=== PATIENT | female | born 1970 ===

== ENCOUNTER 2017-01-03 12:30 | Emergency (ER) | payer SELFPAY ==
[~2017-01-03] VITALS: Ht 165.1 cm; Wt 115.0 kg
[2017-01-03 12:32] VITALS: Ht 165.1 cm; Wt 115.0 kg
[2017-01-03] MEDS ORDERED: NAPROXEN 500 MG TAB PO STA (13:29)
--- NOTE | 2017-01-03 14:20 | RADRPT ---
PROCEDURE: Ultrasound of the left lower extremity venous system. CLINICAL INDICATION: Left leg pain and swelling, deep venous thrombosis TECHNIQUE: Soni scale with and without compression, color doppler, spectral doppler of the venous system of the left lower extremity was performed. Venous augmentation maneuvers were utilized. COMPARISON: No prior studies are available for comparison. FINDINGS: Common femoral vein: Patent. Femoral vein: Patent. Popliteal vein: Patent. Calf veins: Patent. No soft tissue abnormalities are identified. IMPRESSION: No evidence of a deep vein thrombosis within the left lower extremity. RPTAT: AADD .Max Velarde MD, MD Date Time Electronically viewed and signed by .Max Velarde MD, on 01/03/2017 14:20 .B/
--- NOTE | 2017-01-03 14:40 | RADRPT ---
PROCEDURE: CR Left Knee CLINICAL INDICATION: Pain TECHNIQUE: An AP, a tunnel and a lateral view were submitted. COMPARISON: None FINDINGS: Osseous Structures: There is a serpiginous area of increased density seen on the AP view within the distal third of the left femoral shaft compatible with a bone infarct. The osseous elements otherwi se appear intact. Joint Spaces: There is minimal spurring off the posterior superior patella and off the intracondylar spines compatible with mild degenerative change. There is a small joint effusion in the suprapatel lar bursa. Soft Tissues: The soft tissues appear unremarkable. IMPRESSION: 1. 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 2. Very mild osteoarthritic change as described. 3. Small joint effusion. Physician Lyn Date Time Electronically viewed and signed by Physician Lyn on 01/03/2017 14:39 /
[2017-01-03] MEDS ORDERED: KETOROLAC 15 MG INJ IM STA (15:10)
[2017-01-03] MEDS ORDERED: OXYCODONE/ACETAMINOPHEN (5/325) TAB PO STA (15:10)
[2017-01-03 15:20] LABS: ADD SCAN DIFF NO
[2017-01-03 15:26] LABS: BASOPHIL # 0.1 10^3/ul (0.0-0.1); BASOPHILS % 0.5 % (0.0-2.0); EOSINOPHILS # 0.1 10^3/ul (0.0-0.5); EOSINOPHILS % 0.5 % (0.0-7.0); HEMATOCRIT 37.5 % (37.0-47.0); HEMOGLOBIN 11.7 g/dl (12.0-16.0); LYMPHOCYTES # 2.1 10^3/ul (0.8-2.9); LYMPHOCYTES % 21.6 % (15.0-51.0); MEAN CORPUSCULAR HEMOGLOBIN 24.1 pg (29.0-33.0); MEAN CORPUSCULAR HGB CONC 31.2 g/dl (32.0-37.0); MEAN CORPUSCULAR VOLUME 77.3 fl (82.0-101.0); MEAN PLATELET VOLUME 9.3 fl (7.4-10.4); MONOCYTE # 0.5 10^3/ul (0.3-0.9); MONOCYTES % 5.5 % (0.0-11.0); NEUTROPHIL # 6.9 10^3/ul (1.6-7.5); NEUTROPHILS % 71.7 % (39.0-77.0); PLATELET COUNT 344 10^3/UL (140-415); RED BLOOD COUNT 4.85 10^6/ul (4.20-5.40); RED CELL DISTRIBUTION WIDTH 14.6 % (11.5-14.5); WHITE BLOOD COUNT 9.6 10^3/ul (4.8-10.8)
[2017-01-03] MEDS ORDERED: NAPR-688 PO (15:29)
[2017-01-03] MEDS ORDERED: OXYC-279 PO (15:29)
[2017-01-03 15:39] LABS: POTASSIUM 3.5 mmol/L (3.5-5.1)
[2017-01-03 15:41] LABS: INR 0.92; PROTIME 12.4 Sec (12.2-14.2)
[2017-01-03 15:42] LABS: CREATININE 0.68 mg/dl (0.44-1.00); PARTIAL THROMBOPLASTIN TIME 30.5 Sec (25.0-35.0)
[2017-01-03 15:43] LABS: CALCIUM 8.8 mg/dl (8.4-10.2)
--- NOTE | 2017-01-03 16:13 | RADRPT ---
PROCEDURE: Left femur x-ray CLINICAL INDICATION: Left leg pain. Evaluate for avascular necrosis TECHNIQUE: AP and lateral views of the femur were obtained. COMPARISON: None FINDINGS: There is normal mineralization. The appearance of the left hip and visualized pelvis. Serpiginous i ntramedullary calcification within the distal right femoral diaphysis most compatible with bone infa rct. Enchondroma is considered less likely. Bone scan may be considered if there is pain in this r egion. No acute fracture or dislocation is seen. There is no significant soft tissue swelling. IMPRESSION: 1. Normal x-ray of the left femur. 2. Serpiginous calcifications within the distal femoral diaphysis suggestive of a bone infarct. Th ere is pain in this region bone scan may be considered for further evaluation. RPTAT:AAJJ Physician Dk Date Time Electronically viewed and signed by Physician Dk on 01/03/2017 16:13 ELIZABETH/
--- NOTE | 2017-01-03 16:14 | RADRPT ---
PROCEDURE: Pelvis x-ray CLINICAL INDICATION: Avascular necrosis. Pain. TECHNIQUE: Single AP view of the pelvis performed. COMPARISON: None FINDINGS: Normal mineralization, architecture and alignment. No fracture or osseous lesion identified. No asymmetric at joint space narrowing or widening. The sacroiliac joints are symmetric and normal appearance. There are no significant degenerative changes. Unremarkable soft tissues. IMPRESSION: 1.No acute fracture or subluxation. RPTAT:AAJJ Physician Dk Date Time Electronically viewed and signed by Physician Dk on 01/03/2017 16:14 ELIZABETH/
--- NOTE | 2017-01-03 16:16 | ERD ---
ER Documentation Chief Complaint Date/Time DATE: 01/03/17 TIME: 16:06 Chief Complaint left leg pain/injury HPI This is a 46-year-old female history of hypertension presenting to the emergency department complaining of acute on chronic left lower extremity pain for the 2 days. Patient states that her pain level is 7 out of 10 and increased with movement, patient states that she is unable to bear weight or walk without limping. Patient states that this pain is different from her regular pain. She denies taking any medications today, she states that she took Advil and naproxen yesterday without any relief. She denies any trauma. Denies any numbness tingling, recent traveling, estrogen, recent surgery ROS All systems reviewed and are negative except as per history of present illness. Medications Home Meds Active Scripts Naproxen* (Naproxen*) 500 Mg Tablet, 500 MG PO BID Y for PAIN, #30 TAB Prov:JAMIE HAMMOND PA-C 01/03/17 Oxycodone HCl/Acetaminophen (Percocet 5-325 mg Tablet) 1 Each Tablet, 1 EACH PO Q6, #20 TAB Prov:JAMIE HAMMOND PA-C 01/03/17 Allergies Allergies: Coded Allergies: No Known Allergy (Unverified , 01/03/17) PMhx/Soc Medical and Surgical Hx: Unable to obtain Hx Alcohol Use: No Hx Substance Use: No Hx Tobacco Use: No Smoking Status: Never smoker Physical Exam Vitals Vital Signs Date Time Temp Pulse Resp B/P Pulse Ox O2 Delivery O2 Flow Rate FiO2 01/03/17 12:32 98.5 103 19 183/81 100 Physical Exam General: WD/WN, in no apparent distress, non-toxic appearing. obese HENT: NC/AT Eyes: Conjunctiva normal Neck: Supple Pulm: Clear to auscultation, normal labored breathing; no wheezing/rales/ rhonchi heard CV: Good capillary refill GI: Non-distended, no guarding Back: No masses Ext: TTP on left anterior/posterior knee, full passive range of motion, no pitting edema, patient walks with Neuro: Moves on all fours Skin: intact Psych: Normal mood Result Diagram: 01/03/17 1511 01/03/17 1511 Results 24 hrs Laboratory Tests Test 01/03/17 15:11 White Blood Count 9.610^3/ul Red Blood Count 4.8510^6/ul Hemoglobin 11.7g/dl Hematocrit 37.5% Mean Corpuscular Volume 77.3fl Mean Corpuscular Hemoglobin 24.1pg Mean Corpuscular Hemoglobin Concent 31.2g/dl Red Cell Distribution Width 14.6% Platelet Count 66631^3/UL Mean Platelet Volume 9.3fl Neutrophils % 71.7% Lymphocytes % 21.6% Monocytes % 5.5% Eosinophils % 0.5% Basophils % 0.5% Nucleated Red Blood Cells % 0.0/100WBC Neutrophils # 6.910^3/ul Lymphocytes # 2.110^3/ul Monocytes # 0.510^3/ul Eosinophils # 0.110^3/ul Basophils # 0.110^3/ul Nucleated Red Blood Cells # 0.010^3/ul Prothrombin Time 12.4Sec Prothrombin Time Ratio 1.0 INR International Normalized Ratio 0.92 Activated Partial Thromboplast Time 30.5Sec Sodium Level 141mmol/L Potassium Level 3.5mmol/L Chloride Level 102mmol/L Carbon Dioxide Level 26mmol/L Anion Gap 17 Blood Urea Nitrogen 16mg/dl Creatinine 0.68mg/dl Glucose Level 96mg/dl Calcium Level 8.8mg/dl Current Medications Medications (Trade) Dose Ordered Sig/Milady Route PRN Reason Start Time Stop Time Status Last Admin Dose Admin Naproxen (Naprosyn) 500 mg ONCE STAT PO 01/03/17 13:29 01/03/17 13:31 DC 01/03/17 13:50 Ketorolac Tromethamine (Toradol) 15 mg ONCE STAT IM 01/03/17 15:10 01/03/17 15:12 DC 01/03/17 15:18 Oxycodone/ Acetaminophen (Percocet (5/ 325)) 1 tab ONCE STAT PO 01/03/17 15:10 01/03/17 15:12 DC 01/03/17 15:19 Procedures/MDM This is a 46-year-old female history of hypertension presenting to the emergency department complaining of acute on chronic left lower extremity pain for the 2 days, likely due to osteoarthritis vs sprain ligamentous vs meniscal and incidental finding of osteonecrosis of the distal third of the left femoral shaft. There was no evidence of any fracture or dislocation. No evidence of DVT due to negative venous ultrasound. X-ray of the left knee was done and showed a bone infarct within the distal third of the left femoral shaft and mild osteoarthritis and small joint effusion. I have consulted the orthopedist on-call Dr. Arana regarding this case, in which she stated that this is likely an incidental finding without any evidence of any trauma. Dr. Arana stated that patient can be managed as an outpatient, will require an MRI and further evaluation in regards to why patient has osteonecrosis of the distal femoral shaft. Lab work was drawn. CBC did not show any evidence of leukocytosis or anemia. BMP did not show any evidence of renal, liver, or electrolyte abnormalities. Patient was given Percocet, Toradol and naproxen for pain, she had improvement in symptoms. Patient was placed in a knee immobilizer and given crutches, she is neurovascular intact pre-and post treatment. I have consulted my supervising physician Dr. Balderrama regarding this case, in which he stated that patient is suitable for to be discharged home with very close outpatient follow-up. If patient had an elevated white count or intractable pain, patient is appropriate for admission however patient had no evidence of leukocytosis and her pain has been stabilized in the ED. Have given patient a lengthy discussion regarding the condition and discussed to follow-up with her primary care physician tomorrow and to follow with Dr. Arana or another orthopedist within the next couple days. Diagnostic testing information has been provided. Patient stable for discharge for home. Discussed return to the ER for any worsening sinus symptoms. She understands and agrees with this plan Venous ultrasound left lower extremity: No evidence of a deep vein thrombosis within the left lower extremity. XR left knee: 1. 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 2. Very mild osteoarthritic change as described. 3. Small joint effusion. Departure Diagnosis: Primary Impression: Osteonecrosis Condition: Serious Patient Instructions: Bone Radiography (X-ray), Osteoarthritis Referrals: your doctor DAMIR ARANA MD Additional Instructions: FOLLOW UP WITH SOON POSSIBLE FOR FURTHER EVALUATION AND MANAGEMENT FOLLOW UP WITH YOUR PRIMARY CARE PHYSICIAN SOON POSSIBLE. Return to this facility if you are not improving as expected. Take all medicines as directed. You have been given a medicine which may cause drowsiness.DO NOT DRIVE OR OPERATE DANGEROUS MACHINERY while taking this medicine! Return to this facility if you are not improving as expected. JAMIE HAMMOND PA-C January 03, 2017 16:16
== END 2017-01-03 16:59 | disposition home or self-care (01) ==
LOC: FTE 12:30
DX: M87.9 Osteonecrosis, unspecified (principal)
CPT/HCPCS: 29505; 72170; 73550; 73562; 80048; 85025; 85610; 85730; 87040; 93971; J1885; 36415; 96372